=== PATIENT | male | born 2005 | race Caucasian/White ===

== ENCOUNTER 2023-04-20 20:28 | Emergency (ER) | payer OTHER ==
[2023-04-20 20:45] VITALS: BP 145/83; PULSE 71; RESP 20; TEMP 99.2
[2023-04-20] MEDS ORDERED: IBUPROFEN 800 MG TAB PO STA (21:04)
--- NOTE | 2023-04-20 21:46 | XR ---
EXAMINATION TYPE: XR hand complete RT DATE OF EXAM: 04/20/2023 9:20 PM INDICATION: Patient age:Male; 17 years old; Reason for study: pain and swelling; COMPARISON: None TECHNIQUE: Frontal, lateral and oblique views of the right hand were obtained. FINDINGS/IMPRESSION: Acute proximal right fifth digit metacarpal fracture without displacement near the base. There is sof t tissue swelling.
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
== END 2023-04-20 22:33 | disposition home or self-care (01) ==
LOC: EC 20:28
DX: S62.346A Nondisplaced fracture of base of fifth metacarpal bone, right hand, initial encounter for closed fracture (principal); J45.909 Unspecified asthma, uncomplicated; F17.290 Nicotine dependence, other tobacco product, uncomplicated; F12.90 Cannabis use, unspecified, uncomplicated; Z88.0 Allergy status to penicillin; W22.01XA Walked into wall, initial encounter
CPT/HCPCS: 99283